=== PATIENT | female | born 1985 | race Caucasian/White ===

== ENCOUNTER 2019-10-01 09:55 | Emergency (ER) | payer SELFPAY | END 2019-10-01 14:30 | disposition home or self-care (01) | PROVIDERS: Emergency Provider Physician Assistant; Family Provider Internal Medicine; Visit Provider Physician Assistant | DX: K29.00 Acute gastritis without bleeding (principal); I10 Essential (primary) hypertension; Z88.0 Allergy status to penicillin ==

== ENCOUNTER 2019-10-09 11:00 | Outpatient (CLI) | payer SELFPAY | END 2019-10-09 11:01 | disposition home or self-care (01) | LOC: SLEEP 10-11 10:01 | PROVIDERS: Family Provider Internal Medicine; PCP Internal Medicine; Visit Provider Internal Medicine | DX: G47.33 Obstructive sleep apnea (adult) (pediatric) (principal) | CPT/HCPCS: G0399 ==

== ENCOUNTER 2022-03-09 21:12 | Emergency (ER) | payer SELFPAY ==
[2022-03-09 21:27] VITALS: BP 195/107; PULSE 112; RESP 18; TEMP 37; O2SAT 99; BMI 43.7
--- NOTE | 2022-03-09 21:38 | ECG_ITS ---
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 Measurements Intervals [place] Rate: 106 P: 29 CO: 152 QRS: 5 QRSD: 92 T: 14 QT: 325 QTc: 433 Interpretive Statements SINUS TACHYCARDIA PROBABLE INFERIOR MYOCARDIAL INFARCTION , PROBABLY OLD [35 ms Q WAVE IN II/aVF] Compared to ECG 09/28/2019 11:39:02 No significant changes Electronically Signed On 03-10-2022 15:18:22 CDT by Crow Lemus M.D. [id number]
--- NOTE | 2022-03-09 21:41 | ED_ITS ---
HPI - Chest Pain General: Chief Complaint: Chest Pain Stated Complaint: CP/ L arm pain Time Seen by Provider: 03/09/22 21:40 History of Present Illness: Ms. Chase is a 36 lady with significant past medical story of hypertension and recent antibiotics for UTI who presents to the emergency department due to chest pain. She just restarted medication for hypertension. She presents month history of intermittent left arm heaviness. Her episode today started at rest and she had arm tingling associated with radiation to the neck as well as sharp pain that wandered around her chest and moved/radiated to the left armpit. Denies associated lightheadedness, diaphoresis, nausea, shortness of breath. Overall intensity symptoms mild to moderate. Course is intermittent. No other specific changes in health, exacerbating, or alleviating factors identified. Onset (ago): hour(s) Timing of current episode: constant Prior episodes: Yes Onset: during rest Severity: moderate Quality: sharp and other Exacerbating factors: nothing Review of Systems General: Reports: 10 or more systems reviewed and unremarkable except in HPI and below PFSH ED PFSH: Medical History Hypertension Surgical History No significant past surgical history Family History Denies family history of Family history of premature coronary artery disease Physical Exam Const: COMMON NORMALS: alert GENERAL APPEARANCE: cooperative and well developed HENMT: COMMON NORMALS: normocephalic and atraumatic HEAD & SCALP: normocephalic and atraumatic Eye: COMMON NORMALS: conjunctivae normal CONJUNCTIVA: Yes conjunctivae normal SCLERA: sclerae normal Neck/C-Spine: COMMON NORMALS: supple GENERAL: Yes trachea midline Resp: COMMON NORMALS: normal respiratory effort and clear to auscultation bilaterally EFFORT & INSPECTION: Yes able to speak in complete sentences AUSCULTATION: clear to auscultation bilaterally Cardio: COMMON NORMALS: regular rate and regular rhythm RATE: regular rate RHYTHM: regular rhythm GI: COMMON NORMALS: Soft to palpation PALPATION: Yes Soft to palpation and No Tenderness to palpation present (GI) PERCUSSION: normal to percussion Extremity: GENERAL: Yes normal exam except as noted and No edema Neuro: COMMON NORMALS: moves all extremities SENSORIUM/ORIENTATION: Yes alert and No Orientation impaired Psych: COMMON NORMALS: mental status grossly normal and Normal thought process present THOUGHT PROCESS: Normal thought process present Course ED course: - Patient was seen and evaluated by me at bedside - Patient placed on cardiac monitors, IV access obtained - Initial evaluation notable for exam as above - Labs and xrays personally interpreted by me. EKG with nonspecific ST segment abnormalities, no STEMI -Labetalol ordered - Labs notable for no significant hematologic abnormality. Metabolic panel with hypokalemia, replenishment ordered. Troponin negative. - Imaging notable for no lobar consolidation or pneumothorax - Upon serial reexamination after treatment the patient was improved with repeat with labetalol - Based on patient history, evaluation, and testing as interpreted the most likely cause of the patient's condition is chest pain and arm paresthesias possibly related to hypertension. Low risk by heart score. Just restarted antihypertensives. - The results of ED evaluation were discussed with the patient including pr escriptions and/or symptomatic cares (if applicable) including appropriate and responsible use, followup plan, and return precautions. The patient verbalized understanding and felt safe for discharge. - Patient discharged in satisfactory condition. Note: Click bubbles or prepopulated stewart in note writing are used for assistance with data collection and billing and are inherently more limited than narrative and other text portions of this note. Please use narrative for additional clinical history and defer to narrative/free test for any case of contradictory information. If information appears in only free text or click bubble it should be considered present or absent as reported. Please contact note check writer salesperson for clarifications of clinical information or contradictory information. MDM is a brief summary, contradictory or erroneous seeming information should be clarified and full note should be reviewed. Vital Signs: Vital signs: Vital Signs Temperature 98.6 F 03/09/22 21:27 Pulse Rate 79 03/10/22 01:33 Respiratory Rate 17 03/10/22 01:33 Blood Pressure 159/101 03/10/22 01:33 Pulse Oximetry 98 03/10/22 01:33 MDM - Chest Pain Medical Decision Making 36-year-old lady with history of hypertension presenting with arm paresthesias and chest discomfort. Negative ED evaluation. Low risk by heart score. Satisfactory for outpatient management. Medical Records I reviewed the patient's medical records. Lab Data I reviewed the patient's lab results. : 03/09/22 21:45 03/09/22 21:45 Radiology Impressions Chest X-Ray 03/09/22 22:02 IMPRESSION: No acute findings. Laboratory Results WBC 7.6 10^3/uL (4.0-10.0) 03/09/22 21:45 RBC 4.49 10^6/uL (4.1-5.3) 03/09/22 21:45 Hgb 13.8 g/dL (11.5-15.3) 03/09/22 21:45 Hct 40.6 % (37.0-47.0) 03/09/22 21:45 MCV 90.4 fl (81-99) 03/09/22 21:45 MCH 30.7 pg (28.0-34.0) 03/09/22 21:45 MCHC 34.0 g/dL (30.0-36.0) 03/09/22 21:45 RDW 12.1 % (12.1-15.1) 03/09/22 21:45 Plt Count 239 10^3/cmm (130-400) 03/09/22 21:45 MPV 10.6 fL (7.4-10.4) H 03/09/22 21:45 Neut % (Auto) 68.0 % 03/09/22 21:45 Lymph % (Auto) 22.6 % 03/09/22 21:45 [place] % (Auto) 8.2 % 03/09/22 21:45 Eos % (Auto) 0.5 % 03/09/22 21:45 Baso % (Auto) 0.3 % 03/09/22 21:45 Neut # (Auto) 5.16 10^3/uL (1.8-7.7) 03/09/22 21:45 Lymph # (Auto) 1.7 10^3/uL (0.8-4.8) 03/09/22 21:45 [place] # (Auto) 0.6 10^3/uL (0.2-0.9) 03/09/22 21:45 Eos # (Auto) 0.0 10^3/uL (0.0-0.8) 03/09/22 21:45 Baso # (Auto) 0.0 10^3/uL (0.0-0.1) 03/09/22 21:45 Nucleated RBC % (auto) 0 % 03/09/22 21:45 Nucleated RBCs # 0.0 /100WBC 03/09/22 21:45 D-Dimer 0.32 ug/mIFEU (0-0.59) 03/09/22 22:35 Sodium 138 mmol/L (136-145) 03/09/22 21:45 Potassium 3.1 mmol/L (3.5-5.1) L 03/09/22 21:45 Chloride 100 mmol/L (98-107) 03/09/22 21:45 Carbon Dioxide 28 mmol/L (22-29) 03/09/22 21:45 Anion Gap 13.1 (5-19) 03/09/22 21:45 BUN 11 mg/dL (6-20) 03/09/22 21:45 Creatinine 0.9 mg/dL (0.5-0.9) 03/09/22 21:45 GFR Calculation 70.5 mL/min (90-130) L 03/09/22 21:45 Glucose 118 mg/dL (65-115) H 03/09/22 21:45 Calculated Osmolality 286 mOsm/kg (285-295) 03/09/22 21:45 Calcium 9.2 mg/dL (8.5-10.5) 03/09/22 21:45 Total Bilirubin 0.2 mg/dL (0.15-1.2) 03/09/22 21:45 AST 11 U/L (0-32) 03/09/22 21:45 ALT 17 U/L (0-33) 03/09/22 21:45 Alkaline Phosphatase 67 IU/L (35-105) 03/09/22 21:45 Troponin T Baseline 6 ng/L (0-10) 03/09/22 21:45 Troponin T 120 Minute 6.00 ng/L (0-10) 03/09/22 23:31 Delta Troponin T 0 ABS# (0-10) 03/09/22 23:31 Total Protein 7.3 g/dL (6.6-8.7) 03/09/22 21:45 Albumin 4.2 g/dL (3.5-5.2) 03/09/22 21:45 Globulin 3.1 g/dL (1.3-4.6) 03/09/22 21:45 Lipase 31 U/L (13-60) 03/09/22 21:45 HCG, Qual Negative (Negative) 03/09/22 21:45 Urine Color [place] (Yellow) 03/09/22 23:10 Urine Appearance Sl hazy (CLEAR) 03/09/22 23:10 Urine pH 7 (5-7) 03/09/22 23:10 Ur Specific [place] 1.010 (1.005-1.030) 03/09/22 23:10 Urine Protein Neg (Negative) 03/09/22 23:10 Urine Glucose (UA) Norm (Normal) 03/09/22 23:10 Urine Ketones Negative (Negative) 03/09/22 23:10 Urine Blood 3+ (Negative) H 03/09/22 23:10 Urine Nitrate Negative (Negative) 03/09/22 23:10 Urine Bilirubin Neg (Negative) 03/09/22 23:10 Urine Urobilinogen Norm mg/dL (Negative) 03/09/22 23:10 Ur Leukocyte Esterase Negative (Negative) 03/09/22 23:10 Urine RBC 80-100 /hpf (0-2) H 03/09/22 23:10 Urine WBC 5-10 /hpf (0-5) H 03/09/22 23:10 Ur Squamous Epith Cells 5-10 /hpf (0-5) H 03/09/22 23:10 Amorphous Sediment Not Reportable 03/09/22 23:10 Urine Bacteria Trace /hpf (NONE) 03/09/22 23:10 Urine Mucus Trace /hpf 03/09/22 23:10 Discharge Plan Discharge Patient Disposition: Home Clinical Impression: Chest pain, Hypertension, Arm paresthesia, left Condition: Stable Discharge Orders: Discharge ED (Routine); Ordered 03/10/22 Ordered By: Grant Barba Discharge Diet: Usual diet Discharge Activity: Increase activity as tolerated Patient Instructions: Chest Pain (ED), Hypertension (ED) Activity Restrictions/Additional Instructions: Thank you for visiting the emergency department. You were seen evaluated for chest discomfort and arm discomfort. Most likely cause of this is related to uncontrolled blood pressure. Given that you are now on your proper blood pressure medication please continue this and follow-up with your primary care provider. Please return to the emergency department for worsening symptoms or anything else that you are concerned about a feel needs emergency department evaluation. Coding Level of Care Code ED Pattern Shop Supervisor for Aaron Valentine
[2022-03-09 21:51] VITALS: BP 218/85; PULSE 112; RESP 14; O2SAT 97
[2022-03-09 21:58] LABS: Basophils % 0.3 %; Eosinophils % 0.5 %; Hematocrit 40.6 % (37.0-47.0); Hemoglobin 13.8 g/dL (11.5-15.3); Lymphocytes # 1.7 10^3/uL (0.8-4.8); Lymphocytes % 22.6 %; Mean Corpuscular Hemoglobin 30.7 pg (28.0-34.0); Mean Corpuscular Volume 90.4 fl (81-99); Mean Platelet Volume 10.6 fL (7.4-10.4); Monocytes # 0.6 10^3/uL (0.2-0.9); Monocytes % 8.2 %; Neutrophils # 5.16 10^3/uL (1.8-7.7); Nucleated Red Blood Cells % 0 %; Platelet Count 239 10^3/cmm (130-400); Red Blood Count 4.49 10^6/uL (4.1-5.3); Red Cell Distribution Width 12.1 % (12.1-15.1); White Blood Count 7.6 10^3/uL (4.0-10.0)
--- NOTE | 2022-03-09 22:02 | XRR_ITS ---
PROCEDURE INFORMATION: Exam: XR Chest Exam date and time: 03/09/2022 10:53 PM Age: 36 years old Clinical indication: Chest wall pain; Additional info: Chest pain TECHNIQUE: Imaging protocol: XR of the chest. Views: 1 view. COMPARISON: CR Chest 1 [place] [id number] 09/28/2019 11:35 AM FINDINGS: Lungs: Unremarkable. No consolidation. Pleural spaces: Unremarkable. No pleural effusion. No pneumothorax. Heart/Mediastinum: Unremarkable. No cardiomegaly. Bones/joints: Unremarkable. XR/XR chest 1V portable [id number] IMPRESSION: No acute findings.
[2022-03-09 22:06] VITALS: BP 181/99
[2022-03-09 22:14] LABS: HCG, Serum Qual Negative (Negative)
[2022-03-09 22:21] VITALS: PULSE 96; RESP 14; O2SAT 97
[2022-03-09 22:21] LABS: Alanine Aminotransferase 17 U/L (0-33); Albumin Level 4.2 g/dL (3.5-5.2); Alkaline Phosphatase 67 IU/L (35-105); Anion Gap 13.1 (5-19); Aspartate Amino Transferase 11 U/L (0-32); Blood Urea Nitrogen 11 mg/dL (6-20); Calcium 9.2 mg/dL (8.5-10.5); Carbon Dioxide 28 mmol/L (22-29); Chloride 100 mmol/L (98-107); Globulin 3.1 g/dL (1.3-4.6); Glomerular Filtration Rate 70.5 mL/min (90-130); Glucose 118 mg/dL (65-115); Lipase 31 U/L (13-60); Osmolality Calculated 286 mOsm/kg (285-295); Potassium 3.1 mmol/L (3.5-5.1); Sodium 138 mmol/L (136-145); Total Bilirubin 0.2 mg/dL (0.15-1.2); Total Protein 7.3 g/dL (6.6-8.7); Troponin(5th) Baseline 6 ng/L (0-10)
[2022-03-09] MEDS: potassium chloride ER 20 mEq Tablet 40 MEQ PO (22:32)
[2022-03-09 22:36] VITALS: BP 181/99
[2022-03-09 22:55] LABS: D Dimer 0.32 ug/mIFEU (0-0.59)
[2022-03-09] MEDS: labetalol 5 mg/mL SDV 20mL 10 MG IVP (23:16)
[2022-03-09 23:17] VITALS: BP 185/102; PULSE 92; RESP 22; O2SAT 98
[2022-03-09 23:38] LABS: Add Urine Microscopic? YES; Bilirubin Urine Neg (Negative); Blood Urine 3+ (Negative); Glucose Urine UA Norm (Normal); Ketones Urine Negative (Negative); Leukocyte Esterase Urine Negative (Negative); Nitrate Urine Negative (Negative); Protein Urine Neg (Negative); RBC Urine 80-100 /hpf (0-2); Urine Appearance SL Hazy (CLEAR); Urine Color Orange (Yellow); Urobilinogen Urine Norm (Negative); pH Urine 7 (5-7)
--- NOTE | 2022-03-09 23:38 | ECG_ITS ---
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 Measurements Intervals [place] Rate: 88 P: 13 MD: 157 QRS: 4 QRSD: 93 T: 12 QT: 352 QTc: 428 Interpretive Statements SINUS RHYTHM POSSIBLE INFERIOR MYOCARDIAL INFARCTION , PROBABLY OLD [30 ms Q WAVE IN II/aVF] Compared to ECG 03/09/2022 21:30:55 Sinus tachycardia no longer present Myocardial infarct finding still present Electronically Signed On 03-10-2022 15:23:52 CDT by Crow Lemus M.D. [id number]
[2022-03-09 23:39] LABS: Add Urine Culture? Yes; Bacteria Urine TRACE /hpf; Mucus Urine TRACE /hpf
[2022-03-10] MEDS: labetalol 5 mg/mL SDV 20mL 10 MG IVP (00:23)
[2022-03-10 00:25] VITALS: BP 154/102; PULSE 87; RESP 22; O2SAT 96
[2022-03-10 00:43] LABS: Troponin 5 2HR Delta 0 ABS# (0-10)
[2022-03-10 01:33] VITALS: BP 159/101; PULSE 79; RESP 17; O2SAT 98
== END 2022-03-10 01:34 | disposition home or self-care (01) ==
PROVIDERS: Emergency Medicine; Physician Assistant; Emergency Provider Emergency Medicine
DX: R07.9 Chest pain, unspecified (principal); I10 Essential (primary) hypertension; R20.2 Paresthesia of skin
CPT/HCPCS: 71045; 80053; 81001; 83690; 84484; 84703; 85025; 85378; 87086; 93005; 96374; 96375; 99285; J3490

== ENCOUNTER → 2023-03-13 14:13 | Outpatient (BNVA) | payer OTHER, SELFPAY | PROVIDERS: Visit Provider Obstetrics & Gynecology | DX: Z01.419 Encounter for gynecological examination (general) (routine) without abnormal findings (principal) | CPT/HCPCS: 87624 ==

== ENCOUNTER 2023-03-20 13:23 | Emergency (ER) | payer OTHER, SELFPAY ==
[2023-03-20 13:27] VITALS: BP 176/81; PULSE 105; RESP 14; TEMP 37.2; O2SAT 100; BMI 43.6
--- NOTE | 2023-03-20 13:35 | ECG_ITS ---
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 Measurements Intervals [place] Rate: 100 P: 19 TN: 159 QRS: 20 QRSD: 87 T: 31 QT: 342 QTc: 443 Interpretive Statements SINUS TACHYCARDIA Compared to ECG 03/09/2022 23:47:00 Sinus rhythm no longer present Myocardial infarct finding no longer present Electronically Signed On 03-20-2023 17:24:20 CDT by Bobby Leung M.D. [id number]
--- NOTE | 2023-03-20 14:16 | XR_ITS ---
WS: [id number] EXAMINATION: XR chest 1V portable [id number] REASON FOR EXAM: epigastric pain COMPARISON: 03/09/2022 ORDER DATE: 03/20/2023 2:28 PM TECHNIQUE: A single, portable frontal chest x-ray was obtained. X-RAY FINDINGS: The lungs are clear. Pleural spaces are clear. No pleural effusions or pneumothorax. Cardiomediastinal silhouette is normal. No evidence for pulmonary edema. Soft tissue and osseous structures are unremarkable. No tubes or lines are present. XR/XR chest 1V portable [id number] IMPRESSION: Unremarkable frontal portable chest x-ray.
--- NOTE | 2023-03-20 14:18 | W.ED.BACK ---
HPI - Back Pain/Injury General: Chief Complaint: Back Pain/Injury Stated Complaint: middle to upper back and sternum pain Time Seen by Provider: 03/20/23 14:02 History of Present Illness: Patient is a 37-year-old female comes to the ED with back pain and epigastric pain. Symptoms have been going on now for over 2 weeks. She denies any injury or trauma to cause pain. She rates her pain currently is mild and says its a 3 out of 10. Pain is located between her shoulder blades in her mid back region and radiates to both sides of her back bilaterally. Symptoms worsen with movement. She also reports having some epigastric pain as well. She has a history of GERD and is on pantoprazole. Denies any chest pain, shortness of breath, fevers, nausea/vomiting, bladder or bowel symptoms. Associated symptoms: Deny abdominal pain, chills, dysuria, fatigue, fever(s), hematuria, nausea or vomiting Review of Systems Const: Denies: fever(s), chills or fatigue Eyes: Denies: change in vision or eye discomfort ENMT: Denies: throat pain, odynophagia, nasal discharge or nasal congestion Card: Denies: chest pain, palpitations, edema, swelling of feet/ankles, dyspnea on exertion or orthopnea Resp: Denies: dyspnea, productive cough or non-productive cough GI: Reports: heartburn; Denies: abdominal pain, nausea, vomiting, diarrhea, constipation or hematochezia : Denies: flank pain, dysuria or hematuria Musc: Reports: back pain; Denies: neck pain or extremity swelling Skin/Breast: Denies: rash or new lesions Neuro: Denies: headache(s), numbness in extremities or weakness in extremities [facility] ED PFSH: Medical History Hypertension Surgical History No significant past surgical history Family History Mother Breast cancer Hypertension Diabetes Denies family history of Colon cancer Ovarian cancer Heart disease Hypercholesteremia Uterine cancer Thyroid disease Stroke Physical Exam Const: COMMON NORMALS: no acute distress, patient oriented x3 and alert HENMT: COMMON NORMALS: normocephalic HEAD & SCALP: normocephalic MOUTH: Normal oral and palatal mucosa present THROAT: posterior oropharynx normal and uvula midline Neck/C-Spine: COMMON NORMALS: supple GENERAL: Yes normal visual inspection Resp: COMMON NORMALS: normal respiratory effort, No retractions, No use of accessory muscles and clear to auscultation bilaterally AUSCULTATION: clear to auscultation bilaterally Cardio: COMMON NORMALS: regular rate, regular rhythm, S1 normal heart sound present, S2 normal heart sound present, No gallops present (Cardio), No clicks present (Cardio), No murmurs present (Cardio) and Peripheral pulses 2+ throughout RATE: regular rate RHYTHM: regular rhythm HEART SOUNDS: S1 normal heart sound present and S2 normal heart sound present PERIPHERAL PULSES: Peripheral pulses 2+ throughout GI: COMMON NORMALS: Normal to inspection, nondistended, normoactive bowel sounds present, Soft to palpation, non-tender and no masses PALPATION: Yes Soft to palpation : COMMON NORMALS: Yes no CVA tenderness BLADDER/KIDNEY EXAM: Yes no CVA tenderness Back/Pelvis: COMMON NORMALS: no CVA tenderness THORACIC SPINE/UPPER BACK: Yes paraspinal muscle tenderness Thoracic paraspinal muscle tenderness: bilateral Bilateral thoracic paraspinal muscle tenderness: T5, T6 and T7 Extremity: COMMON NORMALS: normal to inspection Neuro: COMMON NORMALS: patient oriented x3 SENSORIUM/ORIENTATION: Yes alert GAIT: Yes Normal gait present Skin: GENERAL SKIN EXAM: dry skin Course Vital Signs: Vital signs: Vital Signs Temperature 98.9 F 03/20/23 13:27 Pulse Rate 96 03/20/23 15:14 Respiratory Rate 14 03/20/23 13:27 Blood Pressure 177/90 03/20/23 15:14 Pulse Oximetry 96 03/20/23 15:14 Oxygen Delivery Me thod Room Air 03/20/23 13:27 MDM - Back Pain/Injury Medical Decision Making Patient is a 37-year-old female comes to the ED with back pain and epigastric pain. Symptoms have been going on now for over 2 weeks. She denies any injury or trauma to cause pain. She rates her pain currently is mild and says its a 3 out of 10. Pain is located between her shoulder blades in her mid back region and radiates to both sides of her back bilaterally. Symptoms worsen with movement. She also reports having some epigastric pain as well. She has a history of GERD and is on pantoprazole. Denies any chest pain, shortness of breath, fevers, nausea/vomiting, bladder or bowel symptoms. Vitals are stable. She appears healthy nontoxic and in no acute distress or pain. Patient has some bilateral thoracic paraspinal muscle tenderness around T5-T6 and T7. No CVA tenderness noted. Rest of her exam is benign. CBC and CMP are unremarkable. hCG negative. Troponin negative. Chest x-ray shows no acute findings. EKG shows sinus tachycardia at [address] segment elevation or depression seen. She was stable for discharge home and diagnosed with strain of thoracic back region and acid reflux disease. She was sent home with a prescription for a muscle relaxer. Follow-up with PCP in the next week for reevaluation. Return ED precautions given. Patient understood and agreed with plan. Labs I reviewed the patient's lab results. 03/20/23 14:20 03/20/23 14:20 Radiology Impressions Chest X-Ray 03/20/23 14:16 IMPRESSION: Unremarkable frontal portable chest x-ray. Laboratory Results WBC 5.6 10^3/uL (4.0-10.0) 03/20/23 14:20 RBC 4.25 10^6/uL (4.1-5.3) 03/20/23 14:20 Hgb 12.9 g/dL (11.5-15.3) 03/20/23 14:20 Hct 38.3 % (37.0-47.0) 03/20/23 14:20 MCV 90.1 fl (81-99) 03/20/23 14:20 MCH 30.4 pg (28.0-34.0) 03/20/23 14:20 MCHC 33.7 g/dL (30.0-36.0) 03/20/23 14:20 RDW 12.6 % (12.1-15.1) 03/20/23 14:20 Plt Count 240 10^3/cmm (130-400) 03/20/23 14:20 MPV 10.0 fL (7.4-10.4) 03/20/23 14:20 Neut % (Auto) 74.9 % 03/20/23 14:20 Lymph % (Auto) 16.4 % 03/20/23 14:20 [place] % (Auto) 7.7 % 03/20/23 14:20 Eos % (Auto) 0.2 % 03/20/23 14:20 Baso % (Auto) 0.4 % 03/20/23 14:20 Neut # (Auto) 4.20 10^3/uL (1.8-7.7) 03/20/23 14:20 Lymph # (Auto) 0.9 10^3/uL (0.8-4.8) 03/20/23 14:20 [place] # (Auto) 0.4 10^3/uL (0.2-0.9) 03/20/23 14:20 Eos # (Auto) 0.0 10^3/uL (0.0-0.8) 03/20/23 14:20 Baso # (Auto) 0.0 10^3/uL (0.0-0.1) 03/20/23 14:20 Nucleated RBC % (auto) 0 % 03/20/23 14:20 Nucleated RBCs # 0.0 /100WBC 03/20/23 14:20 Sodium 138 mmol/L (136-145) 03/20/23 14:20 Potassium 3.9 mmol/L (3.5-5.1) 03/20/23 14:20 Chloride 100 mmol/L (98-107) 03/20/23 14:20 Carbon Dioxide 24 mmol/L (22-29) 03/20/23 14:20 Anion Gap 17.9 (5-19) 03/20/23 14:20 BUN 8 mg/dL (6-20) 03/20/23 14:20 Creatinine 0.7 mg/dL (0.5-0.9) 03/20/23 14:20 GFR Calculation 93.6 mL/min (90-130) 03/20/23 14:20 Glucose 83 mg/dL (65-115) 03/20/23 14:20 Calculated Osmolality 283 mOsm/kg (285-295) L 03/20/23 14:20 Calcium 8.9 mg/dL (8.5-10.5) 03/20/23 14:20 Total Bilirubin 0.6 mg/dL (0.15-1.2) 03/20/23 14:20 AST 20 U/L (0-32) 03/20/23 14:20 ALT 36 U/L (0-33) H 03/20/23 14:20 Alkaline Phosphatase 53 U/L (35-105) 03/20/23 14:20 Troponin T Gen 5 ng/L 6 ng/L (0-10) 03/20/23 14:20 Total Protein 7.3 g/dL (6.6-8.7) 03/20/23 14:20 Albumin 4.5 g/dL (3.5-5.2) 03/20/23 14:20 Globulin 2.8 g/dL (1.3-4.6) 03/20/23 14:20 Lipase 16 U/L (13-60) 03/20/23 14:20 HCG, Qual Negative (Negative) 03/20/23 14:20 EKG Data EKG 1: EKG interpretation date: 03/20/23 Interpretation: Sinus tachycardia, no ST segment elevation or depression seen. 100 bpm. Discharge Plan Discharge Patient Disposition: Home Clinical Impression: Strain of thoracic back region Acid reflux disease Qualifiers: Esophagitis presence: esophagitis presence not specified Qualified Code(s): K21.9 - Gastro-esophageal reflux disease without esophagitis Condition: Stable Prescriptions: New cyclobenzaprine 5 mg tablet 5 mg PO BID PRN (Reason: muscle spasm) Qty: 20 0RF No Action amlodipine 2.5 mg tablet 2.5 mg PO DAILY Probiotic 3 billion cell capsule 3,000 mmu cells PO DAILY Rx Instructions: administer with a meal pantoprazole 20 mg tablet,delayed release (DR/EC) 20 mg PO DAILY Discharge Orders: Discharge ED (Routine); Ordered 03/20/23 Ordered By: Jaydon Johnson Referrals: Polly Leavitt PA [Primary Care Provider] - Discharge Diet: Regular Discharge Activity: Increase activity as tolerated Patient Instructions: Thoracic Back Strain (ED) Activity Restrictions/Additional Instructions: Follow-up with medical provider as directed in the next 5 to 7 days for reevaluation. Take medications as prescribed. Return to the ER or your medical provider if condition worsens. Please read and understand discharge instructions. Thank you for choosing [facility] for your healthcare needs today. Please realize this is an emergency room and that we are providing you with a medical screening exam and this may not be complete and all inclusive of all the testing and or work up that you may need to determine your ailment or severity of your illness. It is very important that you follow up as instructed or that you return to the Emergency Department should you have concerns or if your condition changes or worsens in any way. Coding Level of Care Code ED Crystal Report Developer for Aaron Valentine
[2023-03-20 14:32] LABS: Basophils % 0.4 %; Eosinophils % 0.2 %; Hematocrit 38.3 % (37.0-47.0); Hemoglobin 12.9 g/dL (11.5-15.3); Lymphocytes # 0.9 10^3/uL (0.8-4.8); Lymphocytes % 16.4 %; Mean Corpuscular HGB Conc 33.7 g/dL (30.0-36.0); Mean Corpuscular Hemoglobin 30.4 pg (28.0-34.0); Mean Corpuscular Volume 90.1 fl (81-99); Monocytes # 0.4 10^3/uL (0.2-0.9); Monocytes % 7.7 %; Neutrophils % 74.9 %; Nucleated Red Blood Cells % 0 %; Platelet Count 240 10^3/cmm (130-400); Red Blood Count 4.25 10^6/uL (4.1-5.3); Red Cell Distribution Width 12.6 % (12.1-15.1); White Blood Count 5.6 10^3/uL (4.0-10.0)
[2023-03-20 14:47] LABS: HCG, Serum Qual Negative (Negative)
[2023-03-20 14:51] LABS: Troponin T (5th) Once 6 ng/L (0-10)
[2023-03-20 14:54] LABS: Alanine Aminotransferase 36 U/L (0-33); Albumin Level 4.5 g/dL (3.5-5.2); Alkaline Phosphatase 53 U/L (35-105); Anion Gap 17.9 (5-19); Aspartate Amino Transferase 20 U/L (0-32); Blood Urea Nitrogen 8 mg/dL (6-20); Calcium 8.9 mg/dL (8.5-10.5); Carbon Dioxide 24 mmol/L (22-29); Chloride 100 mmol/L (98-107); Globulin 2.8 g/dL (1.3-4.6); Glomerular Filtration Rate 93.6 mL/min (90-130); Glucose 83 mg/dL (65-115); Lipase 16 U/L (13-60); Osmolality Calculated 283 mOsm/kg (285-295); Potassium 3.9 mmol/L (3.5-5.1); Sodium 138 mmol/L (136-145); Total Bilirubin 0.6 mg/dL (0.15-1.2); Total Protein 7.3 g/dL (6.6-8.7)
[2023-03-20 15:14] VITALS: BP 177/90; PULSE 96; O2SAT 96
== END 2023-03-20 15:10 | disposition home or self-care (01) ==
PROVIDERS: Emergency Provider Physician Assistant; PCP Physician Assistant
DX: S29.012A Strain of muscle and tendon of back wall of thorax, initial encounter (principal); K21.9 Gastro-esophageal reflux disease without esophagitis; I10 Essential (primary) hypertension; X58.XXXA Exposure to other specified factors, initial encounter
CPT/HCPCS: 36415; 71045; 80053; 83690; 84484; 84703; 85025; 93005; 99285

== ENCOUNTER 2023-03-29 14:47 | Outpatient (CLI) | payer OTHER, SELFPAY ==
--- NOTE | 2023-03-29 14:54 | MM_ITS ---
WS: [id number] BILATERAL 3D TOMOSYNTHESIS DIGITAL SCREENING MAMMOGRAPHY WITH CAD CLINICAL INFORMATION: SCREEN HISTORY: Screening mammogram. No current complaints. COMPARISON: 2016 TECHNIQUE: Bilateral CC and MLO views. FINDINGS: Scattered fibroglandular densities bilaterally. No suspicious focal mass, asymmetry, calcifications, or architectural distortion. No evidence of malignancy. Incidental punctate and eggshell calcificatio ns. MM/[place] [id number] IMPRESSION: BI-RADS: 2-Benign FOLLOW UP: 1 Year Follow-up Recommend return to annual screening mammography.
== END 2023-03-29 14:48 | disposition home or self-care (01) ==
PROVIDERS: PCP Physician Assistant; Visit Provider Obstetrics & Gynecology
DX: Z12.31 Encounter for screening mammogram for malignant neoplasm of breast (principal)
CPT/HCPCS: 77063; 77067; 87624

== ENCOUNTER 2023-04-03 09:52 | Outpatient (CLI) | payer OTHER, SELFPAY ==
--- NOTE | 2023-04-03 10:00 | NM_ITS ---
WS: [id number] NUCLEAR MEDICINE HIDA SCAN WITH GALLBLADDER EJECTION FRACTION HISTORY: HEPATOMEGALY COMPARISON: Gallbladder ultrasound 02/23/2023 TECHNIQUE: The patient was intravenously injected with 7.6 mCi of TC99m Mebrofenin. Immediate imaging over the right upper quadrant was followed by 5 minute image and additional images for a total of 60 minutes. Normal uptake of radiotracer throughout the liver. Activity identified in the gallbladder at 15 minutes and well distended by 60 minutes. Activity in the proximal small bowel was not identified at 60 minutes. The patient then drank 8 ounces of Ensure Plus. Ejection fraction at 60 minutes was 20%%. Normal GB e jection fraction is 35-75%. Post fatty meal symptoms: None. NM/NM hepatobiliary w phar* [id number] IMPRESSION: 1. No cystic or common bile duct obstruction. 2. Abnormal gallbladder ejection fraction. No significant gallbladder contract ion after a fatty meal. Consider chronic cholecystitis. Recommend surgical cons ultation.
== END 2023-04-03 09:53 | disposition home or self-care (01) ==
LOC: RAD 09:55
PROVIDERS: PCP Physician Assistant; Visit Provider Physician Assistant
DX: R16.0 Hepatomegaly, not elsewhere classified (principal); K82.8 Other specified diseases of gallbladder
CPT/HCPCS: 78227; A9537

== ENCOUNTER 2023-04-25 12:12 | Observation (INO) | payer OTHER, SELFPAY ==
[2023-04-21 10:48] VITALS: BMI 43.6
[2023-04-25] VITALS (22 sets, daily range): BP systolic 116–187; BP diastolic 49–116; PULSE 59–99; RESP 15–18; TEMP 36.3–36.7; O2SAT 94–100
[2023-04-25] MEDS: gabapentin 300 mg Capsule PO (08:21)
[2023-04-25] MEDS: scopolamine 1.5 Patch 1 PATCH TRANSDERMA (08:21)
[2023-04-25] MEDS: CELEcoxib 200 mg Capsule 400 MG PO (08:21)
[2023-04-25] MEDS: phenazopyridine 100 mg Tablet 200 MG PO ×3 (08:21→20:28)
[2023-04-25] MEDS: acetaminophen 1,000 MG/100 ML PIGGYBACK 400 MG IV (08:22)
[2023-04-25] MEDS: sodium chloride 0.9% 1,000 ML 30 ML IV (08:22)
[2023-04-25 08:37] LABS: Basophils % 0.3 %; Eosinophils % 0.5 %; Hemoglobin 13.5 g/dL (11.5-15.3); Lymphocytes % 15.8 %; Mean Corpuscular HGB Conc 33.8 g/dL (30.0-36.0); Mean Corpuscular Hemoglobin 30.4 pg (28.0-34.0); Mean Corpuscular Volume 90.1 fl (81-99); Monocytes # 0.4 10^3/uL (0.2-0.9); Neutrophils # 4.59 10^3/uL (1.8-7.7); Neutrophils % 76.2 %; Nucleated Red Blood Cells % 0 %; Platelet Count 211 10^3/cmm (130-400); Red Blood Count 4.44 10^6/uL (4.1-5.3); Red Cell Distribution Width 12.5 % (12.1-15.1)
--- NOTE | 2023-04-25 08:37 | SUR.PREOP ---
OR HCG OR HCG Negative 04/25/23. Unable to chart in computer, speaking with IT regarding issue.
[2023-04-25 08:40] LABS: OR HCG Qualitative Urine Negative (Negative)
--- NOTE | 2023-04-25 08:53 | ANES.PREANE2 ---
Pre-Anesthetic Assessment Height/Weight: Height 1.63 m Weight 115.212 kg Temp Pulse Resp BP Pulse Ox O2 Del Method 97.6 F 99 16 161/116 97 Room Air 04/25/23 08:09 04/25/23 08:09 04/25/23 08:09 04/25/23 08:09 04/25/23 08:09 04/25/23 08:11 Preop Diagnosis: rectocele, uterine prolapse Operation Date: 04/25/23 09:40 Proposed Procedures p Laparoscopic Assist Vaginal Hysterectomy(Not Applicable) - Ivone Nichols MD s Posterior colporrhaphy with perineorrhaphy 10249, Laparoscopic assisted vaginal hysterectomy 20996,N81.6,N81.4(Not Applicable) - Ivone Nichols MD s Perineorrhaphy(Not Applicable) - Ivone Nichols MD Familial anesthetic complications: None Was Beta Leonel taken within 24 hours: N/A Was Clonidine taken within 24 hours: N/A Last intake: Intake Last Liquid Date 04/24/23 Last Liquid Time 20:00 Last Solid Date 04/24/23 Last Solid Time 20:00 Social No alcohol and No tobacco Exam alert, oriented x 3, clear to auscultation bilaterally and regular rate & rhythm Airway Dentition: full GI Gastroesophageal Reflux Disease Metabolic Morbid Obesity Anesthetic Plan ASA status: 2 Anesthesia: General Risk of > 500 ml blood loss (7ml/kg in children): No Medications/Allergies Home Medications Medication Instructions Recorded Confirmed Last Taken Type pantoprazole 20 mg tablet,delayed 20 mg PO DAILY 03/13/23 04/21/23 04/21/23 History release Allergies Allergy/AdvReac Type Severity Reaction Status Date / Time iodine Allergy Severe ALGY-Bliste Verified 04/25/23 08:11 r Penicillins Allergy Severe ALGY-Difficulty Verified 04/25/23 08:11 Breathing fluoxetine [From Prozac] Allergy ADR-Halluci Verified 03/20/23 13:26 nating Latex, Natural Rubber Allergy rash/swelli Verified 03/20/23 13:26 ng Current Medications Generic Name Dose Route Start Last Admin Trade Name Freq PRN Reason Stop Dose Admin Sodium Chloride 1,000 mls @ 30 mls/hr 04/25/23 08:15 04/25/23 08:22 Sodium Chloride 0.9% IV 04/26/23 08:14 30 mls/hr .Q24H LAINEY Administration PFSH Anesthesia Medical History Hypertension Surgical History No significant past surgical history Family History Mother Breast cancer Hypertension Diabetes Denies family history of Colon cancer Ovarian cancer Heart disease Hypercholesteremia Uterine cancer Thyroid disease Stroke Female Reproductive History Date of last menstrual period: 04/03/23 Data Anesthesia 04/25/23 08:24 04/25/23 08:24 Short CBC 04/25/23 Range/Units 08:24 WBC 6.0 (4.0-10.0) 10^3/uL Hgb 13.5 (11.5-15.3) g/dL Hct 40.0 (37.0-47.0) % MCV 90.1 (81-99) fl Plt Count 211 (130-400) 10^3/cmm Neut % (Auto) 76.2 % Neut # (Auto) 4.59 (1.8-7.7) 10^3/uL Cardiac Studies: No Data to Display
[2023-04-25 08:58] LABS: Blood Urea Nitrogen 10 mg/dL (6-20); Calcium 8.8 mg/dL (8.5-10.5); Carbon Dioxide 24 mmol/L (22-29); Chloride 105 mmol/L (98-107); Glomerular Filtration Rate 93.6 mL/min (90-130); Glucose 94 mg/dL (65-115); Osmolality Calculated 287 mOsm/kg (285-295); Sodium 139 mmol/L (136-145)
[2023-04-25 09:21] LABS: Anion Gap 14.1 (5-19); Potassium 4.1 mmol/L (3.5-5.1)
--- NOTE | 2023-04-25 09:55 | W.PM.OPSUD ---
Surgery/Procedure H&P Update DATE OF PROCEDURE: April 25, 2023 DATE H&P PERFORMED: 04/21/23 H&P UPDATE INFORMATION: I have reviewed H&P completed within last 30 days, I have examined patient prior to procedure and No changes to prior documentation PREOP DIAGNOSIS: rectocele, uterine prolapse PLANNED PROCEDURE: Operation Date: 04/25/23 09:40 Proposed Procedures p Laparoscopic Assist Vaginal Hysterectomy(Not Applicable) - Ivone Nichols MD s Posterior colporrhaphy with perineorrhaphy 83114, Laparoscopic assisted vaginal hysterectomy 06640,N81.6,N81.4(Not Applicable) - Ivone Nichols MD s Perineorrhaphy(Not Applicable) - Ivone Nichols MD Related Problem List Diagnoses (1) Rectocele: (2) Uterine prolapse:
[2023-04-25] MEDS: ceFAZolin 2,000 MG in sodium chloride 0.9% (plus) 50 ML 100 MG IV ×2 (10:02→18:15)
[2023-04-25] MEDS: vasopressin 20 unit/mL INJ (11:00)
--- NOTE | 2023-04-25 12:38 | PM.OP ---
Operative Report Date of procedure: April 25, 2023 Pre-op diagnosis: Preop Diagnosis rectocele, uterine prolapse Post-op diagnosis: same Post-op findings: Normal appearing vagina and perineum Procedure done: LAVH, bilateral fibriectomy, perineorrhaphy Specimens removed/disposition: uterus, tubal fimbria to pathology Surgeon: Ivone Nichols Anesthesia: General Estimated blood loss (mL): 200 IV fluids (mL): 1,000 Urine output (mL): 300 Complications: none Findings: 9 week sized fibroid uterus, normal appearing ovaries, bilateral tubal fimbria present Condition: stable Disposition: PACU Procedure: The patient was taken to the operating room where general anesthesia was administered and found to be adequate. She was prepped and draped in the normal sterile fashion in the dorsal lithotomy position in [facility]. A Layne catheter was placed. A weighted speculum was placed into the vagina and the anterior lip of the cervix was grasped with a single tooth tenaculum. The Zumi uterine manipulator was placed. The weighted speculum was removed. The gloves were changed and attention was turned to the abdomen. A 5 mm supraumbilical incision was made. Using a 5 mm port with the camera, the port was placed into the abdomen. The abdomen was insufflated. Two low, lateral 5 mm ports were placed on the left and right under direct visualization from the camera. The first thing that I noticed was that there were bilateral fimbria present. The patient had a previous tubal ligation. The right fimbria was grasped and elevated. Using the laparoscopic cautery, the area between the ovary and tube was cauterized and the fimbria removed. This was performed the same way on the left. The uteroovarian ligaments as well as the round ligaments were ligated. Attention was then turned to the vaginal portion of the procedure. The weighted speculum was placed into the vagina. The zumi manipulator was removed. The single tooth tenaculum was removed and replaced with the megha's tenaculum. 10 mL of dilute Pitressin was injected at the vesicovaginal junction. A circumferential incision was made at the vesicovaginal junction and the vaginal mucosa reflected cephalad. The posterior peritoneum was entered sharply with the Metzenbaum scissors and the long weighted speculum replaced. Using the Atilio clamps the uterosacral ligaments were clamped cut and suture-ligated. The anterior peritoneum was entered sharply with the metzenbaum scissors. Then sequentially the uterine arteries and cardinal ligaments were clamped cut and suture-ligated. A single-tooth tenaculum was used to deliver the uterus. The remaining segement of the utero-ovarian ligaments were clamped cut and suture-ligated bilaterally and the specimen was removed. There was good hemostasis with only mild bleeding from the cuff. The peritoneum was closed with a pursestring using 2-0 Vicryl. The vaginal cuff was closed with 0 Vicryl in a running locked pattern incorporating the uterosacral ligaments into the lateral aspects of the vaginal cuff. The Layne catheter was removed and the cystoscope advanced into the bladder. The patient was given pyridium and bilateral spill was noted. There were no injuries or deficits noted in the bladder. The cystoscope was removed and the Layne was replaced. Attention was then turned to the perineorrhphy. Allis clamps were placed on the posterior fourchette. A 3 cm wedge of the fourchette was removed. This was repaired in the usual fashion with O-vicryl. Vaginal packing was placed for good hemostasis. The gloves and gowns were changed and attention was turned to the abdomen. The ports were closed with 2-0 monocryl with skin glue. The patient tolerated the procedure well. Sponge lap and needle counts were correct x3. She was taken to the recovery room in stable condition.
[2023-04-25] MEDS: fentaNYL 50 mcg/mL INJ 2mL IVP (12:54)
--- NOTE | 2023-04-25 13:20 | ANE.PACU2 ---
Inpatient post-anesthesia follow up: Airway intact: Yes Vital signs: Temperature 97.5 F Pulse Rate 89 Respiratory Rate 15 Blood Pressure 128/84 Pulse Oximetry 98 Oxygen Delivery Me thod Nasal Cannula Oxygen Flow Rate 2 Fraction of Inspir ed Oxygen Hydration adequate: Yes Nausea and vomiting: Yes Pain level: 1 Mental status: Baseline
[2023-04-25] MEDS: ondansetron 2 mg/ML SDV 2 mL 4 MG IVP ×2 (14:09→20:26)
[2023-04-25] MEDS: HYDROcodone-acetaminophen 5-325 mg Tablet PO ×2 (14:09→20:29)
[2023-04-25] MEDS: dextrose 5%-lactated ringers 1,000 ML 125 ML IV (14:12)
[2023-04-25] MEDS: lisinopril 10 mg Tablet PO (16:39)
[2023-04-25] MEDS: ketorolac 30 mg/mL INJ IVP (18:07)
[2023-04-25] MEDS: docusate sodium 100 mg Capsule PO (18:13)
[2023-04-25] MEDS: metoprolol tartrate 25 mg Tablet PO (20:30)
--- NOTE | 2023-04-25 20:44 | PM.CONSULT ---
Providers/Reason For Consult Consulting Physician/Specialty*: Hospitalist Reason for Consult*: Hypertensive urgency Attending Physician: Ivone Nichols MD Primary Care Provider: Polly Leavitt History of Present Illness History of Present Illness Janis Chase is a 37 year old female postop day 0 hospital service was consulted for management of hypertension patient stopped taking her medications stating that she was asked not to take her blood pressure pills because she improved, in the hospital her blood pressure has been ranging above 160s consistently, this was discussed with Dr. Nichols over the phone, patient was started on 3 different antihypertensive regimen considering her hypertensive urgency. Patient's pain was adequately managed with opioids and anti-inflammatory medications. Review of Systems Narrative: No fever or chills Abdominal discomfort Soreness No headache No active chest pain No shortness of breath No skin rash No joint pains Const: Denies: fever(s) Eyes: Denies: change in vision ENMT: Denies: throat pain Card: Denies: chest pain Medications/Allergies Home Medications Medication Instructions Recorded Confirmed Last Taken Type pantoprazole 20 mg tablet,delayed 20 mg PO DAILY 03/13/23 04/21/23 04/21/23 History release chlorthalidone 25 mg tablet 25 mg PO DAILY #90 tabs 04/26/23 Unknown Rx docusate sodium 100 mg capsule 100 mg PO BID #60 caps 04/26/23 Unknown Rx hydrocodone 5 mg-acetaminophen 325 1 tab PO Q4H PRN Moderate To 04/26/23 Unknown Rx mg tablet Severe Pain #30 tabs ibuprofen 800 mg tablet 800 mg PO Q8H #30 tabs 04/26/23 Unknown Rx lisinopril 20 mg tablet 20 mg PO BID #60 tabs 04/26/23 Unknown Rx metoprolol tartrate 25 mg tablet 25 mg PO BID@0900,2100 #60 tabs 04/26/23 Unknown Rx ondansetron HCl 4 mg tablet 4 mg PO Q6H PRN nausea and 04/26/23 Unknown Rx vomiting #30 tabs promethazine 25 mg tablet 25 mg PO Q6H PRN nausea and 04/26/23 Unknown Rx vomiting #30 tabs Allergies Allergy/AdvReac Type Severity Reaction Status Date / Time iodine Allergy Severe ALGY-Bliste Verified 04/25/23 08:11 r Penicillins Allergy Severe ALGY-Difficulty Verified 04/25/23 08:11 Breathing fluoxetine [From Prozac] Allergy ADR-Halluci Verified 03/20/23 13:26 nating Latex, Natural Rubber Allergy rash/swelli Verified 03/20/23 13:26 ng Current Medications Generic Name Dose Route Start Last Admin Trade Name Freq PRN Reason Stop Dose Admin Hydrocodone Bitart/Acetaminophen 1 - 2 tab 04/25/23 12:47 04/25/23 20:29 Hydrocodone-Acetaminophen 5-325 Mg Tablet PO 2 tab Q6H PRN Administration MODERATE TO SEVERE PAIN Docusate Sodium 100 mg 04/25/23 18:00 04/25/23 18:13 Docusate Sodium 100 Mg Capsule PO 100 mg BID LAINEY Administration Sodium Chloride 1,000 mls @ 30 mls/hr 04/25/23 08:15 04/25/23 08:22 Sodium Chloride 0.9% IV 04/26/23 08:14 30 mls/hr .Q24H LAINEY Administration Dextrose/Lactated Ringer's 1,000 mls @ 125 mls/hr 04/25/23 13:00 04/25/23 14:12 Dextrose 5%-Lactated Ringers IV 125 mls/hr .Q8H LAINEY Administration Cefazolin Sodium 2,000 mg/ 50 mls @ 100 mls/hr 04/25/23 18:00 04/25/23 18:15 Sodium Chloride IV 04/26/23 02:29 100 mls/hr Q8H LAINEY Administration Protocol Ketorolac Tromethamine 30 mg 04/25/23 13:00 04/25/23 18:07 Ketorolac 30 Mg/Ml Inj IVP 04/26/23 07:01 30 mg Q6H LAINEY Administration Metoprolol Tartrate 25 mg 04/25/23 21:00 04/25/23 20:30 Metoprolol Tartrate 25 Mg Tablet PO 25 mg BID@0900,2100 LAINEY Administration Ondansetron HCl 4 mg 04/25/23 08:03 04/25/23 20:26 Ondansetron 2 Mg/Ml Sdv 2 Ml IVP 4 mg ONCE PRN Administration NAUSEA AND VOMITING Ondansetron HCl 4 mg 04/25/23 12:47 04/25/23 14:09 Ondansetron 2 Mg/Ml Sdv 2 Ml IVP 4 mg Q4H PRN Administration NAUSEA Phenazopyridine HCl 200 mg 04/25/23 15:00 04/25/23 20:28 Phenazopyridine 100 Mg Tablet PO 200 mg TID LAINEY Administration PFSH Acute PFSH: Medical History Hypertension Hypertensive urgency Rectocele Uterine prolapse Surgical History No significant past surgical history Family History Mother Breast cancer Hypertension Diabetes Denies family history of Colon cancer Ovarian cancer Heart disease Hypercholesteremia Uterine cancer Thyroid disease Stroke Female Reproductive History: Date of last menstrual period: 04/03/23 Vitals/I&O/Wt Last Vital Signs Temp 97.4 F L 04/25/23 15:57 Pulse 82 04/25/23 15:33 Resp 15 04/25/23 14:33 BP 173/94 04/25/23 15:33 Pulse Ox 98 04/25/23 15:33 O2 Del Method Room Air 04/25/23 15:33 O2 Flow Rate 2 04/25/23 13:20 04/25/23 04/25/23 04/25/23 06:59 14:59 22:59 Intake Total 200 / 200 Output Total 1300 / 1300 300 / 1600 Balance -1100 / -1100 -300 / -1400 Physical Exam Narrative: Awake and alert Morbidly obese Currently on room air GCS 15 Nonfocal neuro exam Abdominal soreness Appears stated age Urinary Catheter Management: Lanye: Cath Placed During This Visit: yes Reason for Continuing Indwelling Catheter: Perioperative Use in Selected Surgeries Urinary Catheter Date of Insertion: 04/25/23 Urinary Catheter Time of Insertion: 10:44 Data 04/26/23 05:15 04/25/23 08:24 A&P Assessment and plan (1) Hypertensive urgency: Plan HTN urgency add Lisinopril 20 mg bid, creatinine is normal chlorthalidone 25 mg daily metoprolol 25 mg bid hydralazine 10mg Ivp q4 prn if bp >180/100mmhg opioids for pain management These medications could be used at the time of discharge Patient may benefit from work-up of her hypertension if she remains hypertensive spite being on these medications, she might need sleep study and TSH study Consult Attestations Medical Necessity Statement: As per DIAGNOSTICS TECH Diagnoses Hypertensive urgency I16.0
[2023-04-25] MEDS: diphenhydrAMINE 50 mg/mL SDV 1mL 12.5 MG IVP (21:34)
[2023-04-26] MEDS: dextrose 5%-lactated ringers 1,000 ML 125 ML IV (00:06)
[2023-04-26] MEDS: ketorolac 30 mg/mL INJ IVP (00:45)
[2023-04-26 01:00] VITALS: BP 150/88; PULSE 75; RESP 16; TEMP 36.6; TEMP 36.7; O2SAT 98
[2023-04-26] MEDS: ceFAZolin 2,000 MG in sodium chloride 0.9% (plus) 50 ML 100 MG IV (02:00)
[2023-04-26 03:09] VITALS: BP 132/82; PULSE 76; RESP 16; TEMP 36.6; TEMP 36.7
[2023-04-26 05:09] VITALS: BP 132/82; PULSE 80; RESP 16; TEMP 36.6; TEMP 36.7
[2023-04-26 05:26] LABS: Hematocrit 32.4 % (37.0-47.0); Hemoglobin 10.9 g/dL (11.5-15.3); Mean Corpuscular HGB Conc 33.6 g/dL (30.0-36.0); Mean Corpuscular Hemoglobin 30.8 pg (28.0-34.0); Mean Corpuscular Volume 91.5 fl (81-99); Mean Platelet Volume 10.5 fL (7.4-10.4); Platelet Count 210 10^3/cmm (130-400); Red Blood Count 3.54 10^6/uL (4.1-5.3); Red Cell Distribution Width 12.7 % (12.1-15.1); White Blood Count 12.7 10^3/uL (4.0-10.0)
--- NOTE | 2023-04-26 05:34 | PC.NURSE ---
This nurse removed vaginal packing on 04-26-23 @0515 minimal blood on packing noted.
[2023-04-26] MEDS: chlorthalidone 25 mg Tablet PO (09:12)
--- NOTE | 2023-04-26 09:46 | P.DS_ITS ---
Discharge Providers Date of Admission: 04/25/23 12:12 Date of Discharge: April 26, 2023 Attending Provider at Admission: Ivone Nichols MD Attending Provider at Discharge: Ivone Nichols MD Primary Care Provider: Polly Leavitt Diagnoses at Discharge Discharge Diagnosis (1) Hypertensive urgency: Status: Acute Reason for Visit Reason for Visit: N81.6, N81.4 Hospital Course Hospital Course The patient was admitted for surgery. She did well postoperatively and was ready for discharge on day #1 Physical Exam Narrative: The patient is doing well this morning. Blood pressures are normal. They were normal after starting her new medication. Const: COMMON NORMALS: no acute distress, patient oriented x3, no limitations, healthy appearing, alert and well nourished GENERAL APPEARANCE: cooperative, comfortable, well kempt and well developed ORIENTATION/CONSCIOUSNESS: Yes awake, Yes oriented to person, Yes oriented to place and Yes oriented to time Resp: COMMON NORMALS: normal respiratory effort EFFORT & INSPECTION: Yes able to speak in complete sentences GI: COMMON NORMALS: Soft to palpation and non-tender PALPATION: Yes Soft to palpation Extremity: COMMON NORMALS: no calf tenderness Neuro: COMMON NORMALS: patient oriented x3 SENSORIUM/ORIENTATION: Yes alert, Yes oriented to person, Yes oriented to place and Yes oriented to time Psych: APPEARANCE: Yes well kempt Urinary Catheter Management: Layne: Cath Placed During This Visit: yes, but has since been removed by the nurse Reason for Continuing Indwelling Catheter: Decision to DC Catheter Urinary Catheter Date of Insertion: 04/25/23 Urinary Catheter Time of Insertion: 10:44 Date Urinary Catheter Removed: 04/26/23 Time Urinary Catheter Discontinued: 05:15 Discharge Data Studies Completed and Pending Pending at discharge Category Date Time Status Urine Culture Routine Lab 04/25/23 10:44 Received Pathology: Surgical [PTH] Routine Pth 04/25/23 12:25 Received Laboratory Results WBC 12.7 10^3/uL (4.0-10.0) H 04/26/23 05:15 RBC 3.54 10^6/uL (4.1-5.3) L 04/26/23 05:15 Hgb 10.9 g/dL (11.5-15.3) L 04/26/23 05:15 Hct 32.4 % (37.0-47.0) L 04/26/23 05:15 MCV 91.5 fl (81-99) 04/26/23 05:15 MCH 30.8 pg (28.0-34.0) 04/26/23 05:15 MCHC 33.6 g/dL (30.0-36.0) 04/26/23 05:15 RDW 12.7 % (12.1-15.1) 04/26/23 05:15 Plt Count 210 10^3/cmm (130-400) 04/26/23 05:15 MPV 10.5 fL (7.4-10.4) H 04/26/23 05:15 Neut % (Auto) 76.2 % 04/25/23 08:24 Lymph % (Auto) 15.8 % 04/25/23 08:24 [place] % (Auto) 7.0 % 04/25/23 08:24 Eos % (Auto) 0.5 % 04/25/23 08:24 Baso % (Auto) 0.3 % 04/25/23 08:24 Neut # (Auto) 4.59 10^3/uL (1.8-7.7) 04/25/23 08:24 Lymph # (Auto) 1.0 10^3/uL (0.8-4.8) 04/25/23 08:24 [place] # (Auto) 0.4 10^3/uL (0.2-0.9) 04/25/23 08:24 Eos # (Auto) 0.0 10^3/uL (0.0-0.8) 04/25/23 08:24 Baso # (Auto) 0.0 10^3/uL (0.0-0.1) 04/25/23 08:24 Nucleated RBC % (auto) 0 % 04/25/23 08:24 Nucleated RBCs # 0.0 /100WBC 04/25/23 08:24 Sodium 139 mmol/L (136-145) 04/25/23 08:24 Potassium 4.1 mmol/L (3.5-5.1) 04/25/23 08:24 Chloride 105 mmol/L (98-107) 04/25/23 08:24 Carbon Dioxide 24 mmol/L (22-29) 04/25/23 08:24 Anion Gap 14.1 (5-19) 04/25/23 08:24 BUN 10 mg/dL (6-20) 04/25/23 08:24 Creatinine 0.7 mg/dL (0.5-0.9) 04/25/23 08:24 GFR Calculation 93.6 mL/min (90-130) 04/25/23 08:24 Glucose 94 mg/dL (65-115) 04/25/23 08:24 Calculated Osmolality 287 mOsm/kg (285-295) 04/25/23 08:24 Calcium 8.8 mg/dL (8.5-10.5) 04/25/23 08:24 Urine HCG, Qual Negative (Negative) 04/25/23 08:38 Blood Type A Negative 04/25/23 08:23 Rho(D) Type Negative 04/25/23 08:23 Antibody Screen Negative 04/25/23 08:23 Vitals Last Vital Signs Temp 98.0 F 04/26/23 05:09 Pulse 80 04/26/23 05:09 Resp 16 04/26/23 05:09 BP 132/82 04/26/23 05:09 Pulse Ox 98 04/26/23 01:00 O2 Del Method Room Air 04/26/23 01:00 O2 Flow Rate 2 04/25/23 13:20 Discharge Plan Discharge Patient Disposition: Home Condition: Stable Prescriptions: New ibuprofen 800 mg Tablet 800 mg PO Q8H Qty: 30 0RF hydrocodone-acetaminophen 5-325 mg Tablet 1 tab PO Q4H PRN (Reason: Moderate To Severe Pain) Qty: 30 0RF lisinopril 20 mg Tablet 20 mg PO BID Qty: 60 12RF chlorthalidone 25 mg Tablet 25 mg PO DAILY Qty: 90 5RF docusate sodium 100 mg Capsule 100 mg PO BID Qty: 60 0RF metoprolol tartrate 25 mg Tablet 25 mg PO BID@0900,2100 Qty: 60 12RF Continued pantoprazole 20 mg tablet,delayed release (DR/EC) 20 mg PO DAILY Discharge Orders: Discharge Order (Routine); Ordered 04/26/23 Ordered By: Ivone Nichols Patient Instructions: Opioid Safety Discharge Attestations Time Spent in Discharge Care*: less than 30 min Quality Metrics Clinical Quality Measures [ No reported AMI, CVA or VTE this stay] Coding Level of Care Code Acute Code for Chg Fwd Diagnoses Hypertensive urgency I16.0
[2023-04-26 12:05] VITALS: BP 146/80; PULSE 83; RESP 17; TEMP 36.9; O2SAT 98
== END 2023-04-26 12:06 | disposition home or self-care (01) ==
LOC: OBGYN 12:12
PROVIDERS: Admitting Provider Obstetrics & Gynecology; PCP Physician Assistant; Visit Provider Obstetrics & Gynecology
PROC: 0UT9FZZ Resection of Uterus, Via Natural or Artificial Opening With Percutaneous Endoscopic Assistance (ICD-10-PCS; CPT 56810; principal; 2023-04-25 09:30)
PROC: (CPT 57250; 2023-04-25 09:30)
PROC: 0HQ9XZZ Repair Perineum Skin, External Approach (ICD-10-PCS; CPT 56810; 2023-04-25 09:30)
DX: N81.4 Uterovaginal prolapse, unspecified (principal); N81.6 Rectocele; K21.9 Gastro-esophageal reflux disease without esophagitis; E66.01 Morbid (severe) obesity due to excess calories; Z68.41 Body mass index [BMI] 40.0-44.9, adult; I10 Essential (primary) hypertension; I16.0 Hypertensive urgency; N80.03 Adenomyosis of the uterus; N80.203 Endometriosis of bilateral fallopian tubes, unspecified depth; N83.8 Other noninflammatory disorders of ovary, fallopian tube and broad ligament
CPT/HCPCS: 56810; 58552; 36415; 80048; 81025; 84703; 85025; 85027; 86850; 86900; 87086; 88307; G0378; J0131; J0690; J1100; J1170; J1200; J1885; J2250; J2405; J2704; J2710; J3010; J3490; J7030; J7121

== ENCOUNTER → 2023-05-10 15:16 | Outpatient (BNVA) | payer OTHER, SELFPAY | PROVIDERS: PCP Physician Assistant; Visit Provider Registered Nurse Neonatal Intensive Care | DX: S59.912A Unspecified injury of left forearm, initial encounter (principal); X58.XXXA Exposure to other specified factors, initial encounter | CPT/HCPCS: 73090 ==

== ENCOUNTER → 2024-02-20 07:34 | Outpatient (BNVA) | payer OTHER, SELFPAY | PROVIDERS: PCP Physician Assistant; Visit Provider Podiatrist Foot & Ankle Surgery | DX: M79.671 Pain in right foot (principal); M79.672 Pain in left foot; L60.3 Nail dystrophy; M21.41 Flat foot [pes planus] (acquired), right foot; M21.42 Flat foot [pes planus] (acquired), left foot | CPT/HCPCS: 73630 ==

== ENCOUNTER 2024-10-17 14:32 | Outpatient (CLI) | payer OTHER, SELFPAY ==
--- NOTE | 2024-10-17 14:40 | MM_ITS ---
WS: [id number] SCREENING DIGITAL TOMOSYNTHESIS MAMMOGRAM WITH CAD HISTORY: Z12.39 - Encounter for other screening for malignant neop... COMPARISON: 07/14/2016, 03/29/2023 Bilateral CC and MLO with tomosynthesis views submitted. Synthetic mammography reviewed. Computer aid ed detection analyzed. Breast composition: There are scattered areas of fibroglandular density. No suspicious masses, microc alcifications or architectural distortion. MM/MM scr BI tomosynthesis [id number] IMPRESSION: BI-RADS: 2 - Benign. FOLLOW UP: 1 Year Follow-up
== END 2024-10-17 14:33 | disposition home or self-care (01) ==
LOC: RAD 14:33
PROVIDERS: PCP Physician Assistant; Visit Provider Obstetrics & Gynecology
DX: Z12.31 Encounter for screening mammogram for malignant neoplasm of breast (principal); R92.323 Mammographic fibroglandular density, bilateral breasts
CPT/HCPCS: 77063; 77067